=== PATIENT | male | born 1965 | race Caucasian/White ===

== ENCOUNTER 2022-08-28 14:23 | Emergency (ER) | payer SELFPAY ==
[~2022-08-28] VITALS: Ht 180.3 cm; Wt 93.0 kg
[2022-08-28] MEDS ORDERED: ASPI81CH PO (14:59)
[2022-08-28] MEDS ORDERED: COREG12.5 M1 PO (14:59)
[2022-08-28] MEDS ORDERED: ALBU90OI INH (14:59)
[2022-08-28] MEDS ORDERED: Enalapril Malea20 MG PO (14:59)
[2022-08-28] MEDS ORDERED: FURO40 PO (14:59)
[2022-08-28] MEDS ORDERED: ATOR20 PO (14:59)
[2022-08-28] MEDS ORDERED: POTA10T PO (14:59)
== END 2022-08-28 15:15 | disposition home or self-care (01) ==
LOC: ER 14:23
DX: Z76.0 Encounter for issue of repeat prescription (principal); I50.9 Heart failure, unspecified
CPT/HCPCS: 99281